=== PATIENT | female | born 2000 | race Two or more races ===

== ENCOUNTER 2024-08-04 09:26 | Emergency (ER) | payer MEDICAID, SELFPAY ==
[2024-08-04 09:29] VITALS: BMI 35.8
[2024-08-04 09:38] VITALS: BP 116/79; PULSE 87; RESP 16; TEMP 36.8; O2SAT 100
--- NOTE | 2024-08-04 09:44 | XR_ITS ---
Examination: Complete OB ultrasound, less than 14 weeks, transabdominal Date and time of exam: August 04, 2024 1140 hours INDICATIONS: Onset vaginal bleeding today Technique: Obstetrical ultrasound images less than 14 weeks performed via transabdominal imaging Findings: A normal shaped single intrauterine gestation is present in the uterus. pole 2.9 cm corresponds to 9 weeks 5 days gestational age Cardiac motion 171 bpm Ultrasonographic survey of visible and placental structures unremarkable. Amniotic fluid volume appears appropriate for this estimated gestational age. Right ovary 3.4 cm arterial flow Left ovary 3.1 cm arterial flow IMPRESSION: Viable intrauterine gestation 9 weeks 5 days.
--- NOTE | 2024-08-04 09:49 | PD.EDPREG ---
ED OB Contraction Preg RMI/HPI General Chief complaint: OB/Uterine Contractions Stated complaint: Vaginal bleed x 2 hours with cramping Time Seen by Provider: 08/04/24 09:33 Arrival date/time: 08/04/24 09:26 23-year-old female with no significant medical problems presents to the emergency department today with complaints of vaginal bleeding/spotting patient reports he is 4 para 2 believes she is approximately 10 weeks patient's had no care as of yet Limitations: no limitations Related Data Previous Rx's ?Medication ?Instructions ?Recorded ferrous sulfate 325 mg (65 mg 325 mg PO BID #120 tabs 01/17/19 iron) tablet cephalexin 500 mg capsule 500 mg PO BID 5 days #10 caps 08/04/24 Allergies Allergy/AdvReac Type Severity Reaction Status Date / Time No Known Allergies Allergy Verified 05/08/22 03:49 Review of Systems Review of Systems Systems Reviewed: All systems reviewed, normal except as documented Constitutional Constitutional: Reports system reviewed and no additional complaints, except as documented, Denies fever(s) and Denies headache(s) Eyes Eyes: Reports system reviewed and no additional complaints, except as documented and Denies blurry vision ENT Ears, Nose, Mouth, and Throat: Reports system reviewed and no additional complaints, except as documented, Denies headache(s), Denies nasal congestion and Denies nasal discharge Cardiovascular Cardiovascular: Reports system reviewed and no additional complaints, except as documented, Denies chest pain and Denies dyspnea Respiratory Respiratory: Reports system reviewed and no additional complaints, except as documented, Denies chest congestion, Denies cough and Denies dyspnea Gastrointestinal Gastrointestinal: Reports system reviewed and no additional complaints, except as documented and Denies abdominal pain Genitourinary Genitourinary: Reports system reviewed and no additional complaints, except as documented and Reports abnormal vaginal bleeding Integumentary/Breasts Skin/Breast: Reports system reviewed and no additional complaints, except as documented and Denies rash Neurologic Neurologic: Reports system reviewed and no additional complaints, except as documented, Reports as per HPI and Denies headache(s) Past Medical History Past Medical History CARDIAC: Negative Congestive Heart Failure RESPIRATORY: Negative Chronic Obstructive Pulmonary Disease (COPD) GENITOURINARY: Negative Renal Disease ENDOCRINE: Negative Diabetes Mellitus Type 1 or Diabetes Mellitus Type 2 HEMATOLOGIC: Positive Anemia Social History SMOKING STATUS: Never smoker ED Exam General Limitations: Present no limitations General appearance: Present alert and in no apparent distress Head Head exam: Present atraumatic, normocephalic and normal inspection Eye Eye exam: Present normal appearance, PERRL and EOMI; Absent conjunctival injection ENT ENT exam: Present normal exam, normal oropharynx and mucous membranes moist Neck Neck exam: Present normal inspection, full ROM and trachea midline Chest Chest inspection: Present normal inspection and symmetric chest wall rise Respiratory Respiratory exam: Present normal lung sounds bilaterally; Absent respiratory distress Cardiovascular Cardiovascular exam: Present regular rate, normal rhythm and normal heart sounds Abdominal Exam Abdominal exam: Present soft and normal bowel sounds; Absent distention, tenderness, guarding, rebound or rigidity Extremities Exam Extremities exam: Present normal inspection and full ROM Back Exam Back exam: Present normal inspection and full ROM Neurological Exam Neurological exam: Present alert, oriented X3 and CN II-XII intact Psychiatric Psychiatric exam: Present normal affect and normal mood Skin Skin exam: Present warm, dry, intact and normal color Course Quality Measures none Orders Category Date Time Status US OB <= 14 weeks fetus Stat Exams 08/04/24 09:44 Completed ABO/RH Type Stat Lab 08/04/24 10:56 Completed Beta HCG,Quantitative Stat Lab 08/04/24 10:56 Completed CBC Stat Lab 08/04/24 10:56 Completed Comprehensive Metabolic Panel Stat Lab 08/04/24 10:56 Completed Path Review Blood Smear Stat Lab 08/04/24 10:56 Completed UA, C/S IF [Urinalysis, C/S if Indicated] Stat Lab 08/04/24 10:00 Completed Vital Signs Vital signs: Vital Signs Temperature 98.2 F 08/04/24 09:38 Pulse Rate 87 08/04/24 09:38 Respiratory Rate 16 08/04/24 09:38 Blood Pressure 116/79 08/04/24 09:38 Pulse Oximetry (%) 100 08/04/24 09:38 Oxygen Delivery Method Room Air 08/04/24 09:38 O2 saturation 100% room air within normal limits OB/Uterine Contractions MDM Narrative MDM Narrative:: 23-year-old female with no significant medical problems presents to the emergency department today with complaints of vaginal bleeding/spotting patient reports he is 4 para 2 believes she is approximately 10 weeks patient's had no care as of yet On exam patient well-appearing patient does not appear ill or toxic patient does not appear in acute distress Lab work as well as ultrasound obtained Patient discharged home in no distress follow-up with [facility] in the next 24 to 48 hours for worsening symptoms or concerns to return to the ER immediately Patient data External records reviewed:: [facility] previous records Clinical information provided by:: patient Social determinants that could affect healthcare access:: none Patient has the following chronic illnesses:: None How is presenting disease/condition affected by chronic disease/condition?: no chronic disease Evaluation data The following diagnostics were reviewed and interpreted by me:: lab results and radiology exam(s) Lab and/or radiology exams considered but not ordered:: Labs and radiology obtained Interpretation Summary: Reviewed by me Medications / Prescriptions Medications or Prescriptions considered but not ordered:: Given Medication administrations:: Given Consultations Consultation(s) initiated? (list below): No Diagnosis OB Contractions Differential Diagnosis: other (Missed , threatened ) Most likely diagnosis given after review of the tests above:: Threatened Admission Indicated Admission indicated?: not indicated Explain why admission is indicated or not indicated:: No criteria Admission Request Was there a request for admission?: No Disposition Plan Disposition Plan: Discharge Discharge Attestation Discharge Attestation: The patient and all family members were given an opportunity to ask questions and understood the discharge instructions. Discharge instructions specifically effects, indications for sooner follow up or return to the emergency department, and the expected course of current diagnosis. Patient condition: Stable Discharge Plan Plan Patient Disposition: HOME (Self Care) Disposition Comment: Stable Prescriptions/Referrals Prescriptions/Med Rec: New cephalexin 500 mg capsule 500 mg PO BID 5 Days Qty: 10 0RF No Action ferrous sulfate 325 mg (65 mg iron) tablet 325 mg PO BID Qty: 120 0RF Rx Instructions: Be sure to take your iron pills on an empty stomach, with orange juice Referrals: Tyrone Ramírez MD [Primary Care Provider] - 08/05/24 Problem List Clinical Impression: Vaginal bleeding during , UTI (urinary tract infection) Patient/Caregiver Discharge Instructions Education Materials: Urinary Tract Infections in Women Additional Instructions: Please follow-up with [facility] as discussed for worsening symptoms return immediately Please take vitamins Print Language: Micronesian Stand Alone Forms: Jessica Award Info., Work/School Release, Patient Portal Info Letter PA/GIDEON Supervising Physician PA/GIDEON Supervising Physician: Dr doran
[2024-08-04 10:05] LABS: Collection Type, Urine Clean Catch
[2024-08-04 10:52] LABS: Bacteria,Urine 1+; Bilirubin,Urine Negative (Negative); Blood,Urine 2+ (Negative); Clarity,Urine Turbid (Clear/Hazy); Color,Urine Lt-Yellow (Lt Yel-Yel); Culture Indicated,Urine Contaminated; Glucose, Urine Negative (Negative); Ketones,Urine Negative (Negative); Leukocyte Esterase,Urine Positive (Negative); Nitrite,Urine Negative (Negative); PH,Urine 6.5 (5.0-7.0); Protein,Urine Negative (Neg - Trace); RBC,Urine 39 /hpf (0-3); Specific Gravity,Urine 1.013 (1.001-1.035); Squamous Epithelial Cell,Urine 19 /hpf (0-5); Urobilinogen,Urine Negative mg/dL (0.0-1.0); WBC,Urine 24 /hpf (0-5)
[2024-08-04 11:18] LABS: Basophils # (Auto) 0.1 Thou/mm3 (0.0-0.2); Basophils % (Auto) 1 % (0-2.5); Eosinophils % (Auto) 1 % (0-10); Hematocrit 28.2 % (36.0-46.0); Immature Granulocytes % (Auto) 0 % (0-0); Immature Granulocytes Auto 0.02 Thou/mm3 (0.00-0.00); Lymphocytes # (Auto) 1.3 Thou/mm3 (1.0-4.8); Lymphocytes % (Auto) 16 % (10-50); Mean Corpuscular HGB Conc 28.7 g/dl (31.0-37.0); Mean Corpuscular Hemoglobin 17.5 pg (25.0-35.0); Mean Corpuscular Volume 61 fL (80-100); Monocytes # (Auto) 0.4 Thou/mm3 (0.0-0.8); Monocytes % (Auto) 5 % (0-12); Neutrophils # (Auto) 6.2 Thou/mm3 (1.8-7.7); Neutrophils % (Auto) 77 % (37-80); Nucleated Red Blood Cell % 0 /100 WBC (0); Platelet Count 368 Thou/mm3 (140-440); RDW Standard Deviation 45.3 fL (36.4-46.3); Red Blood Count 4.63 Miln/mm3 (4.00-5.20)
[2024-08-04 11:44] LABS: Hemoglobin 8.1 g/dL (12.0-16.0)
[2024-08-04 11:50] LABS: Alanine Aminotransferase 12 U/L (10-49); Albumin, Serum 4.5 gm/dL (3.5-5.0); Albumin/Globulin Ratio 1.7 (1.2-2.2); Alkaline Phosphatase 62 U/L (46-116); Anion Gap 7 (7-16); Aspartate Amino Transferase 15 U/L (0-34); BUN/Creatinine Ratio 12 Ratio (12-20); Bilirubin,Total 0.7 mg/dL (0.3-1.2); Blood Urea Nitrogen 6 mg/dL (9-23); Calcium 9.5 mg/dL (8.3-10.6); Calcium (Corrected) 9.5 mg/dL (8.5-10.1); Carbon Dioxide 23.5 mMol/L (20.0-31.0); Chloride 106 mMol/L (98-107); Creatinine (Component) 0.5 mg/dL (0.6-1.3); Estimated Creatinine Clearance 179.7 mL/min (>60); Globulin 2.7 gm/dL (2.3-3.5); Glucose 102 mg/dL (74-106); Osmolality,Calculated 269 (275-295); Sodium 136 mMol/L (136-145); Total Protein 7.2 gm/dL (5.7-8.2); eGFR > 60 See Note
[2024-08-04 12:03] LABS: Path Review Blood Smear Sent to Pathologist
[2024-08-04 12:30] LABS: Beta HCG,Quantitative 112245 mIU/mL (<5.0)
== END 2024-08-04 13:17 | disposition home or self-care (01) ==
PROVIDERS: Nurse Practitioner Primary Care; Emergency Provider Emergency Medicine; PCP Family Medicine
DX: O20.9 Hemorrhage in early pregnancy, unspecified (principal); O23.41 Unspecified infection of urinary tract in pregnancy, first trimester; N39.0 Urinary tract infection, site not specified; Z3A.09 9 weeks gestation of pregnancy
CPT/HCPCS: 36415; 76801; 80053; 81001; 84702; 85025; 86900; 86901; 99284

== ENCOUNTER 2024-09-26 08:51 | Outpatient (RCR) | payer MEDICAID, SELFPAY ==
[2024-09-12 09:17] VITALS: BP 125/69; PULSE 77; RESP 18; TEMP 36.2; O2SAT 100; BMI 36.6
[2024-09-12] MEDS: IRON SUCROSE CPLX INJ 20 MG/ML VIAL 5 ML 200 MG IVP (09:49)
[2024-09-12 10:28] VITALS: BP 117/65; PULSE 79; RESP 18; TEMP 36.6; O2SAT 100
[2024-09-15 10:10] VITALS: BP 117/67; PULSE 73; RESP 16; TEMP 36.9; O2SAT 98; BMI 36.6
[2024-09-15] MEDS: IRON SUCROSE CPLX INJ 20 MG/ML VIAL 5 ML 200 MG IVP (10:22)
[2024-09-15 10:35] VITALS: BP 131/66; PULSE 77; RESP 14; TEMP 37.1; O2SAT 100
[2024-09-22 09:00] VITALS: BP 115/64; PULSE 84; RESP 18; TEMP 36.6; O2SAT 100; BMI 36.6
[2024-09-22] MEDS: IRON SUCROSE CPLX INJ 20 MG/ML VIAL 5 ML 200 MG IVP (09:21)
[2024-09-22 09:28] VITALS: BP 118/69; PULSE 81; RESP 18; TEMP 36.6; O2SAT 98
[2024-09-26 09:10] VITALS: BP 111/64; PULSE 81; RESP 18; TEMP 36.6; O2SAT 98; BMI 37.0
[2024-09-26] MEDS: IRON SUCROSE CPLX INJ 20 MG/ML VIAL 5 ML 200 MG IVP (09:15)
[2024-09-26 09:20] VITALS: BP 114/62; PULSE 78; RESP 16; TEMP 36.4; O2SAT 98
== END 2024-09-28 23:59 | disposition home or self-care (01) ==
LOC: SFLEX 08:51
PROVIDERS: Referring Provider Specialist; Visit Provider Specialist
DX: D50.8 Other iron deficiency anemias (principal); K90.49 Malabsorption due to intolerance, not elsewhere classified
CPT/HCPCS: 96374; J1756

== ENCOUNTER 2025-02-25 08:36 | Inpatient (IN) | payer MEDICAID, SELFPAY ==
--- NOTE | 2025-02-18 15:58 | ESHP_ITS ---
RE: CLAY WHITTEN : 2000 DATE OF ADMISSION: 02/25/2025 HISTORY OF PRESENT ILLNESS: This is a 24-year-old 4, para 2-0-1-2 with a due date of 03/03/2025 with intrauterine at 39 weeks and 1 day on 02/25, who is admitted for induction of labor per [facility] recommendation for BMI of 40. The patient denies any leaking or bleeding. She reports normal movement. She has occasional contractions. During her care, she had a false positive syphilis test and subsequently screening for causes of false positive syphilis revealed a positive Lyme disease titer; however, after MFM evaluation, it was believed that this was a false positive due to the patient's never been in any endemic areas and is without symptoms, so the patient was never treated as it is believed to be a false positive. Her care was also significant for iron deficiency anemia. ALLERGIES: NO KNOWN DRUG ALLERGIES. MEDICATIONS: 1. multivitamin 1 p.o. daily. 2. Ferrous sulfate 325 mg 1 p.o. b.i.d. 3. Vitamin B12 500 mcg 1 p.o. daily. PAST MEDICAL HISTORY: Iron deficiency anemia, vitamin B12 deficiency, BMI of 40. SOCIAL HISTORY: She denies any alcohol, drug use, or smoking. PAST SURGICAL HISTORY: Denies. OB HISTORY: In 2020, 40-week normal vaginal delivery, 8 pound 5 ounce female, no complications. In 06/2021, 6-week spontaneous AB, no D and C. In 04/2023, 40-week normal vaginal delivery, 7-pound female complicated by hypertension and anemia. PAST SURGICAL HISTORY: Denies. REVIEW OF SYSTEMS: She denies any chest pain, palpitations, cough, fever, shortness of breath, rash, flank pain, or lower extremity pain. She denies any headache, change in vision, or right upper quadrant pain. PHYSICAL EXAMINATION: VITAL SIGNS: Blood pressure 123/65, heart rate 72, respirations 18, temperature 98.6. Weight 219 pounds. HEENT: Oropharynx and sclerae are clear. LUNGS: Clear to auscultation bilaterally. HEART: Regular rate and rhythm. ABDOMEN: Gravid, term size consistent with estimated weight 8 pounds. EXTREMITIES: Nontender. SKIN: No gross rashes or lesions. NEUROLOGIC: No focal deficit. PELVIC: See RN notes. ASSESSMENT AND PLAN: Intrauterine at 39 weeks and 1 days on 02/25/2025, BMI 40, induction of labor, anticipated spontaneous vaginal delivery. Informed consent was obtained. The patient was made aware of the risks, complications, alternatives, and benefits of operative vaginal delivery and delivery and agrees with these modes of delivery if indicated. DT: 15:14:31 TT: 15:50:00 Ref: [id number] - TID: [id number] MTDD
[2025-02-25] VITALS (19 sets, daily range): BP systolic 104–128; BP diastolic 55–81; PULSE 61–92; RESP 16; TEMP 36.5–36.9; O2SAT 99–100; BMI 40.7
--- NOTE | 2025-02-25 09:22 | XR_ITS ---
Examination: age Limited Technique: Grayscale sonographic images pelvis Date and time: February 25, 2025, 0945 hrs. Indications: Preop labor induction today, unknown presentation Findings: presentation cephalic spine maternal right Estimated weight 2727 g. Cardiac motion 136 BPM Impression: Viable intrauterine gestation cephalic presentation
[2025-02-25 09:24] LABS: Basophils # (Auto) 0.0 Thou/mm3 (0.0-0.2); Basophils % (Auto) 0 % (0-2.5); Eosinophils # (Auto) 0.1 Thou/mm3 (0.0-0.5); Eosinophils % (Auto) 1 % (0-10); Hematocrit 33.1 % (36.0-46.0); Hemoglobin 10.2 g/dL (12.0-16.0); Immature Granulocytes Auto 0.01 Thou/mm3 (0.00-0.00); Lymphocytes # (Auto) 1.2 Thou/mm3 (1.0-4.8); Lymphocytes % (Auto) 18 % (10-50); Mean Corpuscular HGB Conc 30.8 g/dl (31.0-37.0); Mean Corpuscular Hemoglobin 22.5 pg (25.0-35.0); Mean Corpuscular Volume 73 fL (80-100); Monocytes # (Auto) 0.4 Thou/mm3 (0.0-0.8); Monocytes % (Auto) 6 % (0-12); Neutrophils # (Auto) 4.9 Thou/mm3 (1.8-7.7); Neutrophils % (Auto) 75 % (37-80); Nucleated Red Blood Cell # 0.00 Thou/mm3 (0.00-0.00); Nucleated Red Blood Cell % 0 /100 WBC (0); Platelet Count 249 Thou/mm3 (140-440); RDW Standard Deviation 48.4 fL (36.4-46.3); Red Blood Count 4.54 Miln/mm3 (4.00-5.20); White Blood Count 6.6 Thou/mm3 (3.6-11.0)
[2025-02-25] MEDS: RINGERS LACTATED 1000 ML 1,000 ML 100 ML IV ×3 (09:30→22:58)
[2025-02-25 10:01] LABS: Amphetamine/Metham Scrn,Ur OB Negative (Negative); Benzoylecgonine Screen, Ur OB Negative (Negative); Opiate Screen,Urine OB Negative (Negative); THC Screen,Urine OB Negative (Negative)
[2025-02-25 10:02] LABS: Syphilis Nonreactive (Nonreactive)
[2025-02-25 18:11] LABS: ROM Kit Exp Date# 01/18/28; ROM Kit Lot # 58104371; ROM Swab Mixed By: JC; Rupture of Fetal Membranes Negative (Negative); Swb Mxed in Solvent 1 min? Yes
[2025-02-26] VITALS (57 sets, daily range): BP systolic 104–137; BP diastolic 52–102; PULSE 60–111; RESP 16–19; TEMP 36.4–37.3; O2SAT 89–100
--- NOTE | 2025-02-26 09:23 | PD.LDPN ---
Documentation for date of: 02/26/25 OB Labor Progress Note Pelvic Exam Dilation (cm): 3 Effacement (%): 70 station: -3 Amniotic membrane status: Intact Comments: Per RN exam Contractions Monitor mode: External Contraction frequency: 1-4.5 Contraction pattern: Coupling Contraction intensity: Mild Status status: Category l Assessment and Plan Comments: Cervical ripening on going Amniosure negative. No reports of further leaking since yesterday. Induction of labor for BMI Anticipate
[2025-02-26] MEDS: MINERAL OIL 30 ML UDC TOP (20:00)
[2025-02-26] MEDS: OXYTOCIN in NS 20 units 20 UNIT/1,000 ML BAG 125 UNIT IV (20:08)
--- NOTE | 2025-02-26 20:17 | PD.LDDS ---
DS: Providers Provider Date of admission: 02/25/25 08:36 Primary care physician: Physician No Primary/Family Admitting Provider: Rylan Francisco MD Attending Provider on Admission: Rylan Francisco MD Attending Provider on DC: Rylan Francisco MD Discharging Provider: Rylan Francisco MD DS: Diagnosis Problem List Completed Was Problem List Reviewed/Reconciled?: Yes Summary/Hosp Course Peripartum Data Delivery Method: Normal Vaginal Delivery Episiotomy Description: None Time Spent with Patient Time attestation: Total time spent providing and/or coordinating discharge services: Exam Vital Signs Temp Pulse Resp BP Pulse Ox O2 Del Method 99.2 F 80 19 111/57 L 100 Room Air 02/26/25 19:44 02/26/25 20:15 02/26/25 19:44 02/26/25 20:15 02/26/25 19:56 02/25/25 19:15 Discharge Plan Plan Patient Disposition: HOME (Self Care) Patient condition on transfer: Stable Prescriptions/Referrals Prescriptions/Med Rec: New ibuprofen 600 mg tablet 600 mg PO Q6H PRN (Reason: pain) Qty: 30 0RF Continued Vitamin 27 mg iron- 800 mcg tablet 1 tab PO QDAY Patient Comments: TAKE 1 TABLET BY MOUTH EVERY DAY Discontinued ferrous sulfate 325 mg (65 mg iron) tablet 325 mg PO BID Qty: 120 0RF Rx Instructions: Be sure to take your iron pills on an empty stomach, with orange juice Referrals: No Primary/Family,Physician [Primary Care Provider] Patient/Caregiver Discharge Instructions Discharge Activity: activity as tolerated Other Discharge Activity Instructions:: Follow up office 6 weeks Education Materials: After a Vaginal , Nutrition While , Understanding Depression Print Language: Croatian Stand Alone Forms: Jessica Award Info., Patient Portal Info Letter Discharge Order Discharge Orders: Discharge (Routine); Ordered 02/27/25 Ordered By: Rylan Francisco Planned Discharge Date 02/27/25
[2025-02-26] MEDS: BENZO/LANO/ALOE (Dermoplast) 60 GM CAN 1 SPRAY TOP (20:21)
[2025-02-26 20:48] LABS: Hepatitis B Surface Antigen Non Reactive (Non React)
[2025-02-26] MEDS: IBUPROFEN TAB 400 MG TABLET 800 MG PO (21:18)
[2025-02-27 04:42] VITALS: BP 115/72; PULSE 70; RESP 18; TEMP 36.6; O2SAT 97
--- NOTE | 2025-02-27 06:20 | PD.LDDELS ---
Data ([facility]) Data : 4 Delivery Data ([facility]) Labor Data Initiation of labor: Induction Induction/Augmentation Agent: Cytotec-PO, Cervidil and Artificial ROM ROM date: 02/26/25 ROM time: 19:51 Amniotic membrane rupture type: Artificial Amniotic fluid description: Clear Delivery Data EDC: 03/03/25 EDC calculated by:: LMP/early US confirmation Onset of labor date: 02/26/25 Onset of labor time: 18:19 Complete dilation date: 02/26/25 Complete dilation time: 19:51 delivery date: 02/26/25 delivery time: 19:55 Gestational age (weeks): 39 Gestational age (days): 2 Placenta delivery date: 02/26/25 Placenta delivery time: 19:58 Stage 1 total time: Labor - Stage 1 Duration 1 hours and 32 minutes Delivered by: Rylan Francisco Delivery nurse: darling Roth nurse: GOMEZ Griffin Psychological Aide at delivery: No Support person(s) at delivery: FOB at bedside Delivery Method Delivery method: Normal Vaginal Delivery Presentation: Vertex position: OA Anesthesia Type Anesthesia Type: Epidural Placenta Placenta delivery description: Spontaneous Cord blood sent to lab: Yes cord blood collection: Cord Blood Type Episiotomy Episiotomy description: None Lacerations #1: Perineal: 2nd degree EBL Estimated blood loss (ml): 100 Umbilical Cord cord description: 3 Vessels Additional Procedures None Complications Complications: None Data ([place]) [place] Data order: 1 [place]'s gender: Male Identification band number: [id number] weight (gms): 6 lb 7.176 oz Weight (pounds): 6 lbs and 7.2 ozs length: 18.75 in 1 minute: 8 5 minutes: 9
--- NOTE | 2025-02-27 06:42 | ESPR_ITS ---
RE: CLAY WHITTEN : 2000 DATE OF SERVICE: 02/27/2025 SUBJECTIVE: day #1, patient denies any problems or complaints. She is voiding. She is ambulating. She is tolerating diet. She is passing flatus. She denies any excessive vaginal bleeding. She denies any dizziness or lightheadedness. She denies any chest pain, palpitations, shortness of breath or lower extremity pain. OBJECTIVE: Vital Signs: Blood pressure 115/72, heart rate 70, respirations 18, temperature is 97.8, and pulse oximetry 97% on room air. Lungs: Clear to auscultation bilaterally. Heart: Regular rate and rhythm. Abdomen: Fundus is firm. Nontender. Extremities: Nontender. ASSESSMENT: day #1, status post spontaneous vaginal delivery. PLAN: Discharge home when baby is cleared. Discharge instructions given. Follow up in the office in 6 weeks. support. DT: 06:18:19 TT: 06:40:00 Ref: [id number] - TID: [id number]
[2025-02-27 07:30] VITALS: BP 113/75; PULSE 79; RESP 17; TEMP 36.5; O2SAT 99
[2025-02-27 07:30] LABS: Basophils # (Auto) 0.0 Thou/mm3 (0.0-0.2); Basophils % (Auto) 0 % (0-2.5); Eosinophils # (Auto) 0.1 Thou/mm3 (0.0-0.5); Eosinophils % (Auto) 1 % (0-10); Hematocrit 29.9 % (36.0-46.0); Hemoglobin 9.2 g/dL (12.0-16.0); Immature Granulocytes Auto 0.03 Thou/mm3 (0.00-0.00); Lymphocytes # (Auto) 1.4 Thou/mm3 (1.0-4.8); Lymphocytes % (Auto) 17 % (10-50); Mean Corpuscular HGB Conc 30.8 g/dl (31.0-37.0); Mean Corpuscular Hemoglobin 22.7 pg (25.0-35.0); Mean Corpuscular Volume 74 fL (80-100); Monocytes # (Auto) 0.6 Thou/mm3 (0.0-0.8); Monocytes % (Auto) 7 % (0-12); Neutrophils # (Auto) 6.3 Thou/mm3 (1.8-7.7); Neutrophils % (Auto) 74 % (37-80); Nucleated Red Blood Cell # 0.00 Thou/mm3 (0.00-0.00); Nucleated Red Blood Cell % 0 /100 WBC (0); Platelet Count 223 Thou/mm3 (140-440); RDW Standard Deviation 49.4 fL (36.4-46.3); Red Blood Count 4.06 Miln/mm3 (4.00-5.20); White Blood Count 8.4 Thou/mm3 (3.6-11.0)
[2025-02-27 11:20] VITALS: BP 110/69; PULSE 80; RESP 18; TEMP 36.6; O2SAT 97
[2025-02-27] MEDS: IBUPROFEN TAB 400 MG TABLET 800 MG PO (11:41)
--- NOTE | 2025-02-27 13:34 | PC.SS ---
INTERNAL CONSULTANT conducted bedside contact with the patient to address nursing referral indicating patient was late to care at 18 weeks.? INTERNAL CONSULTANT introduced self and role.? At bedside with patient was AMANDA, Zohreh Holguin.? Patient gave permission for FOB to be present during discussion.? INTERNAL CONSULTANT reviewed basis of referral.? Patient confirmed late to care (18 weeks) due to the patient not being able to obtain OB services at [facility] due to lack of providers.? Patient then able to schedule OB appointment with Dr. Francisco but unable to obtain appointment prior to 12 week timeframe.? Following initial appointment, patient reported consistency with OB appointments.? Infant, Nito; is the patient?s 3rd child.? Infant delivered naturally.? Patient will engage in combo feeding of the infant.? Patient is receiving WIC, SNAP and TANF.? Patient denies history of alcohol/drug abuse.? Patient denies CWS intervention.? Patient denies episodes of domestic violence.? Patient denies possessing a history of mental health, reports no current possession of depression or anxiety.? Patient has access to appropriate supplies and equipment; to include a car seat.? FOB will provide transportation upon discharge.? Patient describes possessing support system consisting of parent, FOB and extended family.? INTERNAL CONSULTANT provided the patient with community resources to include [facility] and Warm Line.? No further intervention required at this time, clinical social worker will be available to address any further concerns.? INTERNAL CONSULTANT updated bedside nurse.?
[2025-02-27 15:28] VITALS: BP 112/68; PULSE 82; RESP 17; TEMP 36.5; O2SAT 98
[2025-02-27 20:00] VITALS: BP 105/69; PULSE 76; RESP 18; TEMP 36.8; O2SAT 98
== END 2025-02-27 21:07 | disposition home or self-care (01) | DRG 560 ==
LOC: S4SX 02-26 20:06 → S4NX 02-26 22:01
PROVIDERS: Admitting Provider Specialist; Visit Provider Specialist
DX: O70.1 Second degree perineal laceration during delivery (principal); D50.9 Iron deficiency anemia, unspecified; O99.02 Anemia complicating childbirth; Z37.0 Single live birth
CPT/HCPCS: 36415; 76815; 80307; 84112; 85025; 86780; 86850; 86900; 86901; 87340; J2590; J2795; J7120; A9270